=== PATIENT | female | born 2005 | race American Indian/Alaskan Native ===

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

== ENCOUNTER 2024-12-08 16:48 | Emergency (ER) | payer OTHER | END 2024-12-08 17:55 | disposition home or self-care (01) | LOC: DL.ED 16:48 | DX: R07.89 Other chest pain (principal); Z88.2 Allergy status to sulfonamides | CPT/HCPCS: 71046; 93005; 93010; 99283; 99285 ==